=== PATIENT | male | born 1930 | race Caucasian/White ===

== ENCOUNTER 2017-12-23 23:26 | Inpatient (IN) | payer MEDICARE, OTHER ==
[~2017-12-23] VITALS: Ht 193 cm; Wt 122.0 kg
[~2017-12-23 23:26] MED LIST: BIMA2.5D4 EACHEYE; CEPH-572 PO; DIO80T PO; FLO0.4C PO; FURO40TA4 PO; MAGN400T29 PO; NEBI20TA2 PO; POTA10TA19 PO; RIVA20TA PO; TIMO10DR12 OP
[2017-12-23] MEDS ORDERED: normal saline 1000ml 1,000 ML IV ONE (23:50)
[2017-12-23 23:58] LABS: BASOPHILS # (AUTO) 0.1 X10'3 (0-0.2); BASOPHILS % (AUTO) 0.5 % (0-1); EOSINOPHILS # (AUTO) 0.2 X10'3 (0-0.9); EOSINOPHILS % (AUTO) 1.8 % (0-6); HEMATOCRIT 43.3 % (42.0-52.0); HEMOGLOBIN 14.3 g/dl (14.0-17.9); LYMPHOCYTES # (AUTO) 0.7 X10'3 (1.1-4.8); LYMPHOCYTES % (AUTO) 5.5 % (21-51); MEAN CORPUSCULAR HEMOGLOBIN 29.8 PG (27.0-31.0); MEAN CORPUSCULAR HGB CONC 33.1 % (33.0-36.5); MEAN CORPUSCULAR VOLUME 90.1 FL (78-98); MEAN PLATELET VOLUME 9.2 FL (7.4-10.4); MONOCYTES # (AUTO) 0.9 X10'3 (0-0.9); MONOCYTES % (AUTO) 6.8 % (2-12); NEUTROPHILS # (AUTO) 10.9 X10'3 (1.8-7.7); NEUTROPHILS % (AUTO) 85.4 % (42-75); PLATELET COUNT 379 X10'3 (140-440); RED BLOOD COUNT 4.81 X10'6 (4.70-6.10); RED CELL DISTRIBUTION WIDTH 15.3 % (11.5-14.5); WHITE BLOOD COUNT 12.8 X10'3 (4.5-11.0)
[2017-12-24 00:06] LABS: INR 1.4 INR; PARTIAL THROMBOPLASTIN TIME 39 SECONDS (22-32); PROTHROMBIN TIME 14.5 SECONDS (9.0-12.0)
[2017-12-24 00:10] LABS: ALANINE AMINOTRANSFERASE 87 U/L (12-78); ALBUMIN 2.6 G/DL (3.4-5.0); ALBUMIN/GLOBULIN RATIO 0.5 (1.1-1.5); ALKALINE PHOSPHATASE 117 IU/L (46-116); ANION GAP 8 (8-16); ASPARTATE AMINO TRANSFERASE 54 U/L (10-37); BILIRUBIN,TOTAL 0.7 MG/DL (0.1-1.0); BLOOD UREA NITROGEN 30 MG/DL (7-18); BUN/CREATININE RATIO 18.9 (5.4-32.0); CALCIUM 10.1 MG/DL (8.5-10.1); CHLORIDE 100 MMOL/L (99-107); CREATINE KINASE 36 U/L (39-308); CREATININE 1.59 MG/DL (0.60-1.10); GLUCOSE 119 MG/DL (70-104); MAGNESIUM 2.3 MG/DL (1.5-2.4); POTASSIUM 3.7 MMOL/L (3.5-5.1); SODIUM 135 MMOL/L (135-145); TOTAL PROTEIN 7.4 G/DL (6.4-8.2); eGFR 41 ML/MIN
[2017-12-24 01:19] LABS: CLARITY,URINE CLEAR (Clear); COLOR,URINE YELLOW (Yellow); GLUCOSE, URINE NEGATIVE (Neg); KETONES,URINE NEGATIVE (Neg); LEUKOCYTE ESTERASE ,URINE NEGATIVE (Neg); NITRITES, URINE NEGATIVE (Neg); OCCULT BLOOD,URINE NEGATIVE (Neg); PROTEIN,URINE NEGATIVE (Neg)
[2017-12-24 01:20] LABS: UA COLLECTION TYPE STRAIGHT CATH
[2017-12-24] MEDS ORDERED: thiamine 100mg/ml 2ml inj. IV ONE (02:25)
[2017-12-24] MEDS ORDERED: magnesium hydroxide 30ml (MOM) UD suspension PO PRN (02:40)
[2017-12-24] MEDS ORDERED: mag hydrox/Alum hydrox/simeth 30ml oral suspension PO PRN (02:40)
[2017-12-24] MEDS ORDERED: ondansetron/PF 4mg/2ml inj IV PRN (02:40)
[2017-12-24] MEDS: acetaminophen 325mg tablet PO PRN (04:32)
[2017-12-24 05:28] VITALS: BP 137/80
[2017-12-24 07:00] VITALS: BP 120/55
[2017-12-24] MEDS: tamsulosin 0.4mg capsule PO SCH (07:28)
[2017-12-24] MEDS: furosemide 40mg tablet PO SCH (07:29)
[2017-12-24] MEDS: rivaroxaban 20mg tablet PO SCH (07:29)
[2017-12-24] MEDS: metoprolol tartrate 50mg tablet PO SCH ×2 (07:29→20:23)
[2017-12-24] MEDS: magnesium oxide 400mg tablet PO SCH (07:29)
[2017-12-24] MEDS: potassium chloride 10mEq ER tablet PO SCH (07:33)
[2017-12-24] MEDS: cephalexin 500mg capsule PO SCH ×3 (10:16→20:23)
[2017-12-24] MEDS: timolol maleate 0.25% ophthalmic drops 10ml EACHEYE SCH (11:26)
[2017-12-24 11:42] VITALS: BP 137/74
[2017-12-24] MEDS: normal saline 1000ml 1,000 ML IV SCH (15:10)
[2017-12-24 15:21] LABS: BASOPHILS % (AUTO) 0.5 % (0-1); EOSINOPHILS # (AUTO) 0.3 X10'3 (0-0.9); EOSINOPHILS % (AUTO) 2.8 % (0-6); HEMATOCRIT 36.8 % (42.0-52.0); HEMOGLOBIN 12.3 g/dl (14.0-17.9); LYMPHOCYTES % (AUTO) 10.7 % (21-51); MEAN CORPUSCULAR HEMOGLOBIN 30.1 PG (27.0-31.0); MEAN CORPUSCULAR HGB CONC 33.5 % (33.0-36.5); MEAN CORPUSCULAR VOLUME 89.9 FL (78-98); MEAN PLATELET VOLUME 8.6 FL (7.4-10.4); MONOCYTES # (AUTO) 0.8 X10'3 (0-0.9); MONOCYTES % (AUTO) 8.2 % (2-12); NEUTROPHILS # (AUTO) 7.4 X10'3 (1.8-7.7); NEUTROPHILS % (AUTO) 77.8 % (42-75); PLATELET COUNT 351 X10'3 (140-440); RED BLOOD COUNT 4.09 X10'6 (4.70-6.10); RED CELL DISTRIBUTION WIDTH 15.3 % (11.5-14.5); WHITE BLOOD COUNT 9.5 X10'3 (4.5-11.0)
[2017-12-24 15:36] LABS: ALANINE AMINOTRANSFERASE 53 U/L (12-78); ALBUMIN/GLOBULIN RATIO 0.5 (1.1-1.5); ALKALINE PHOSPHATASE 95 IU/L (46-116); ANION GAP 6 (8-16); ASPARTATE AMINO TRANSFERASE 33 U/L (10-37); BILIRUBIN,TOTAL 0.6 MG/DL (0.1-1.0); BLOOD UREA NITROGEN 27 MG/DL (7-18); CALCIUM 9.5 MG/DL (8.5-10.1); CHLORIDE 102 MMOL/L (99-107); CREATINE KINASE 42 U/L (39-308); CREATININE 1.42 MG/DL (0.60-1.10); GLUCOSE 111 MG/DL (70-104); POTASSIUM 3.2 MMOL/L (3.5-5.1); SODIUM 137 MMOL/L (135-145); TOTAL CARBON DIOXIDE 29.2 MMOL/L (24-32); TOTAL PROTEIN 6.1 G/DL (6.4-8.2); eGFR 47 ML/MIN
[2017-12-24 20:00] VITALS: BP 138/71
[2017-12-24] MEDS ORDERED: potassium Cl 40MEQ/NS 500ml 500 ML IV PRN ×2 (20:00)
[2017-12-24] MEDS ORDERED: potassium Cl 20 mEq SR tablet PO PRN (20:00)
[2017-12-24] MEDS: potassium Cl 20 mEq SR tablet PO PRN (20:25)
[2017-12-24] MEDS: latanoprost 0.005% 2.5ml ophthalmic drops EACHEYE SCH (21:22)
[2017-12-25] VITALS: BP 160/66
[2017-12-25] MEDS: cephalexin 500mg capsule PO SCH ×4 (01:10→21:09)
[2017-12-25] MEDS: potassium Cl 20 mEq SR tablet PO PRN ×3 (01:10→21:09)
[2017-12-25] MEDS: normal saline 1000ml 1,000 ML IV SCH ×3 (01:10→20:55)
[2017-12-25 08:00] VITALS: BP 141/79
[2017-12-25] MEDS: metoprolol tartrate 50mg tablet PO SCH ×2 (08:05→21:09)
[2017-12-25] MEDS: potassium chloride 10mEq ER tablet PO SCH (08:05)
[2017-12-25] MEDS: magnesium oxide 400mg tablet PO SCH (08:05)
[2017-12-25] MEDS: tamsulosin 0.4mg capsule PO SCH (08:05)
[2017-12-25] MEDS: furosemide 40mg tablet PO SCH (08:05)
[2017-12-25] MEDS: rivaroxaban 20mg tablet PO SCH (08:05)
[2017-12-25] MEDS: timolol maleate 0.25% ophthalmic drops 10ml EACHEYE SCH (08:17)
[2017-12-25 11:00] VITALS: BP 152/78
[2017-12-25 18:00] VITALS: BP 166/75
[2017-12-25] MEDS: latanoprost 0.005% 2.5ml ophthalmic drops EACHEYE SCH (21:09)
[2017-12-26] VITALS: BP 143/71
[2017-12-26] MEDS: cephalexin 500mg capsule PO SCH ×4 (01:17→20:41)
[2017-12-26] MEDS: potassium Cl 20 mEq SR tablet PO PRN (01:18)
[2017-12-26 05:55] LABS: BASOPHILS % (AUTO) 0.4 % (0-1); EOSINOPHILS # (AUTO) 0.3 X10'3 (0-0.9); EOSINOPHILS % (AUTO) 3.4 % (0-6); HEMATOCRIT 39.8 % (42.0-52.0); HEMOGLOBIN 13.4 g/dl (14.0-17.9); LYMPHOCYTES # (AUTO) 0.8 X10'3 (1.1-4.8); MEAN CORPUSCULAR HEMOGLOBIN 29.9 PG (27.0-31.0); MEAN CORPUSCULAR HGB CONC 33.7 % (33.0-36.5); MEAN CORPUSCULAR VOLUME 88.9 FL (78-98); MEAN PLATELET VOLUME 8.8 FL (7.4-10.4); MONOCYTES # (AUTO) 0.7 X10'3 (0-0.9); MONOCYTES % (AUTO) 8.6 % (2-12); NEUTROPHILS # (AUTO) 6.9 X10'3 (1.8-7.7); NEUTROPHILS % (AUTO) 78.6 % (42-75); PLATELET COUNT 391 X10'3 (140-440); RED BLOOD COUNT 4.48 X10'6 (4.70-6.10); RED CELL DISTRIBUTION WIDTH 14.8 % (11.5-14.5); WHITE BLOOD COUNT 8.7 X10'3 (4.5-11.0)
[2017-12-26 06:24] LABS: ALANINE AMINOTRANSFERASE 56 U/L (12-78); ALBUMIN 2.1 G/DL (3.4-5.0); ALBUMIN/GLOBULIN RATIO 0.5 (1.1-1.5); ALKALINE PHOSPHATASE 85 IU/L (46-116); ANION GAP 8 (8-16); ASPARTATE AMINO TRANSFERASE 34 U/L (10-37); BILIRUBIN,TOTAL 0.7 MG/DL (0.1-1.0); BLOOD UREA NITROGEN 23 MG/DL (7-18); BUN/CREATININE RATIO 18.4 (5.4-32.0); CALCIUM 9.5 MG/DL (8.5-10.1); CHLORIDE 103 MMOL/L (99-107); CREATININE 1.25 MG/DL (0.60-1.10); GLUCOSE 80 MG/DL (70-104); POTASSIUM 3.7 MMOL/L (3.5-5.1); SODIUM 136 MMOL/L (135-145); TOTAL CARBON DIOXIDE 25.2 MMOL/L (24-32); TOTAL PROTEIN 6.4 G/DL (6.4-8.2); eGFR 55 ML/MIN
[2017-12-26] MEDS: normal saline 1000ml 1,000 ML IV SCH (07:37)
[2017-12-26] MEDS: magnesium oxide 400mg tablet PO SCH (07:38)
[2017-12-26] MEDS: tamsulosin 0.4mg capsule PO SCH (07:38)
[2017-12-26] MEDS: potassium chloride 10mEq ER tablet PO SCH (07:38)
[2017-12-26] MEDS: timolol maleate 0.25% ophthalmic drops 10ml EACHEYE SCH (07:38)
[2017-12-26] MEDS: metoprolol tartrate 50mg tablet PO SCH ×2 (07:38→20:41)
[2017-12-26] MEDS: rivaroxaban 20mg tablet PO SCH (07:38)
[2017-12-26] MEDS: furosemide 40mg tablet PO SCH (07:38)
[2017-12-26 18:00] VITALS: BP 175/92
[2017-12-26] MEDS: lactobacillus rhamnosus 10,000 MMU CELLS/CAPSULE PO SCH (20:41)
[2017-12-26] MEDS: latanoprost 0.005% 2.5ml ophthalmic drops EACHEYE SCH (20:42)
[2017-12-27] VITALS: BP 136/64
[2017-12-27] MEDS: cephalexin 500mg capsule PO SCH ×2 (02:25→08:18)
[2017-12-27 05:13] LABS: BASOPHILS % (AUTO) 0.5 % (0-1); EOSINOPHILS # (AUTO) 0.3 X10'3 (0-0.9); HEMATOCRIT 38.4 % (42.0-52.0); HEMOGLOBIN 12.9 g/dl (14.0-17.9); LYMPHOCYTES # (AUTO) 0.8 X10'3 (1.1-4.8); LYMPHOCYTES % (AUTO) 9.2 % (21-51); MEAN CORPUSCULAR HEMOGLOBIN 29.8 PG (27.0-31.0); MEAN CORPUSCULAR HGB CONC 33.6 % (33.0-36.5); MEAN CORPUSCULAR VOLUME 88.7 FL (78-98); MEAN PLATELET VOLUME 8.5 FL (7.4-10.4); MONOCYTES # (AUTO) 0.7 X10'3 (0-0.9); MONOCYTES % (AUTO) 7.8 % (2-12); NEUTROPHILS # (AUTO) 7.2 X10'3 (1.8-7.7); NEUTROPHILS % (AUTO) 79.5 % (42-75); PLATELET COUNT 364 X10'3 (140-440); RED BLOOD COUNT 4.33 X10'6 (4.70-6.10); RED CELL DISTRIBUTION WIDTH 14.9 % (11.5-14.5)
[2017-12-27 05:36] LABS: ALANINE AMINOTRANSFERASE 45 U/L (12-78); ALBUMIN 2.1 G/DL (3.4-5.0); ALBUMIN/GLOBULIN RATIO 0.5 (1.1-1.5); ALKALINE PHOSPHATASE 89 IU/L (46-116); ANION GAP 9 (8-16); ASPARTATE AMINO TRANSFERASE 33 U/L (10-37); BILIRUBIN,TOTAL 0.7 MG/DL (0.1-1.0); BLOOD UREA NITROGEN 24 MG/DL (7-18); BUN/CREATININE RATIO 18.9 (5.4-32.0); CALCIUM 9.9 MG/DL (8.5-10.1); CHLORIDE 102 MMOL/L (99-107); CREATININE 1.27 MG/DL (0.60-1.10); GLUCOSE 87 MG/DL (70-104); POTASSIUM 3.6 MMOL/L (3.5-5.1); SODIUM 134 MMOL/L (135-145); TOTAL CARBON DIOXIDE 23.1 MMOL/L (24-32); TOTAL PROTEIN 6.4 G/DL (6.4-8.2); eGFR 54 ML/MIN
[2017-12-27 07:00] VITALS: BP 156/84
[2017-12-27] MEDS: magnesium oxide 400mg tablet PO SCH (08:18)
[2017-12-27] MEDS: furosemide 40mg tablet PO SCH (08:18)
[2017-12-27] MEDS: timolol maleate 0.25% ophthalmic drops 10ml EACHEYE SCH (08:18)
[2017-12-27] MEDS: rivaroxaban 20mg tablet PO SCH (08:19)
[2017-12-27] MEDS: lactobacillus rhamnosus 10,000 MMU CELLS/CAPSULE PO SCH ×2 (08:19→19:49)
[2017-12-27] MEDS: metoprolol tartrate 50mg tablet PO SCH ×2 (08:19→19:49)
[2017-12-27] MEDS: potassium chloride 10mEq ER tablet PO SCH (08:19)
[2017-12-27] MEDS: tamsulosin 0.4mg capsule PO SCH (08:19)
[2017-12-27 11:33] VITALS: BP 143/89
[2017-12-27 19:00] VITALS: BP 158/92
[2017-12-27] MEDS: acetaminophen 325mg tablet PO PRN (19:49)
[2017-12-27] MEDS: latanoprost 0.005% 2.5ml ophthalmic drops EACHEYE SCH (19:49)
[2017-12-28] VITALS: BP 139/66
[2017-12-28 04:45] LABS: BASOPHILS % (AUTO) 0.5 % (0-1); EOSINOPHILS # (AUTO) 0.6 X10'3 (0-0.9); EOSINOPHILS % (AUTO) 6.9 % (0-6); HEMOGLOBIN 12.8 g/dl (14.0-17.9); LYMPHOCYTES # (AUTO) 0.8 X10'3 (1.1-4.8); LYMPHOCYTES % (AUTO) 9.2 % (21-51); MEAN CORPUSCULAR HEMOGLOBIN 30.1 PG (27.0-31.0); MEAN CORPUSCULAR HGB CONC 33.6 % (33.0-36.5); MEAN CORPUSCULAR VOLUME 89.6 FL (78-98); MEAN PLATELET VOLUME 8.8 FL (7.4-10.4); MONOCYTES # (AUTO) 0.7 X10'3 (0-0.9); MONOCYTES % (AUTO) 8.1 % (2-12); NEUTROPHILS # (AUTO) 6.8 X10'3 (1.8-7.7); NEUTROPHILS % (AUTO) 75.3 % (42-75); PLATELET COUNT 336 X10'3 (140-440); RED BLOOD COUNT 4.24 X10'6 (4.70-6.10); RED CELL DISTRIBUTION WIDTH 15.2 % (11.5-14.5)
[2017-12-28 05:02] LABS: ALANINE AMINOTRANSFERASE 53 U/L (12-78); ALBUMIN/GLOBULIN RATIO 0.5 (1.1-1.5); ALKALINE PHOSPHATASE 80 IU/L (46-116); ANION GAP 6 (8-16); ASPARTATE AMINO TRANSFERASE 36 U/L (10-37); BILIRUBIN,TOTAL 0.5 MG/DL (0.1-1.0); BLOOD UREA NITROGEN 25 MG/DL (7-18); BUN/CREATININE RATIO 18.7 (5.4-32.0); CALCIUM 9.8 MG/DL (8.5-10.1); CHLORIDE 105 MMOL/L (99-107); CREATININE 1.34 MG/DL (0.60-1.10); GLUCOSE 92 MG/DL (70-104); POTASSIUM 3.5 MMOL/L (3.5-5.1); SODIUM 137 MMOL/L (135-145); TOTAL CARBON DIOXIDE 25.6 MMOL/L (24-32); eGFR 50 ML/MIN
[2017-12-28 07:40] VITALS: BP 152/79
[2017-12-28] MEDS: metoprolol tartrate 50mg tablet PO SCH ×2 (08:27→20:15)
[2017-12-28] MEDS: magnesium oxide 400mg tablet PO SCH (08:27)
[2017-12-28] MEDS: timolol maleate 0.25% ophthalmic drops 10ml EACHEYE SCH (08:27)
[2017-12-28] MEDS: rivaroxaban 20mg tablet PO SCH (08:27)
[2017-12-28] MEDS: lactobacillus rhamnosus 10,000 MMU CELLS/CAPSULE PO SCH ×2 (08:27→20:15)
[2017-12-28] MEDS: tamsulosin 0.4mg capsule PO SCH (08:27)
[2017-12-28] MEDS: potassium chloride 10mEq ER tablet PO SCH (08:27)
[2017-12-28] MEDS: furosemide 40mg tablet PO SCH (08:27)
[2017-12-28 10:50] VITALS: BP 151/65
[2017-12-28] MEDS ORDERED: valsartan 80mg tablet PO SCH (13:45)
[2017-12-28 19:30] VITALS: BP 105/78
[2017-12-28 20:00] VITALS: BP 147/78
[2017-12-28] MEDS: latanoprost 0.005% 2.5ml ophthalmic drops EACHEYE SCH (20:15)
[2017-12-28] MEDS: acetaminophen 325mg tablet PO PRN (20:16)
[2017-12-29] VITALS: BP 130/67
[2017-12-29 05:51] LABS: ALANINE AMINOTRANSFERASE 47 U/L (12-78); ALBUMIN/GLOBULIN RATIO 0.5 (1.1-1.5); ALKALINE PHOSPHATASE 74 IU/L (46-116); ANION GAP 6 (8-16); ASPARTATE AMINO TRANSFERASE 30 U/L (10-37); BILIRUBIN,TOTAL 0.4 MG/DL (0.1-1.0); BLOOD UREA NITROGEN 27 MG/DL (7-18); BUN/CREATININE RATIO 18.9 (5.4-32.0); CALCIUM 9.5 MG/DL (8.5-10.1); CHLORIDE 104 MMOL/L (99-107); CREATININE 1.43 MG/DL (0.60-1.10); GLUCOSE 87 MG/DL (70-104); POTASSIUM 3.4 MMOL/L (3.5-5.1); SODIUM 137 MMOL/L (135-145); TOTAL CARBON DIOXIDE 26.6 MMOL/L (24-32); TOTAL PROTEIN 6.1 G/DL (6.4-8.2); eGFR 47 ML/MIN
[2017-12-29 05:54] LABS: BASOPHILS # (AUTO) 0.1 X10'3 (0-0.2); BASOPHILS % (AUTO) 0.6 % (0-1); EOSINOPHILS # (AUTO) 0.3 X10'3 (0-0.9); EOSINOPHILS % (AUTO) 2.9 % (0-6); HEMATOCRIT 36.2 % (42.0-52.0); HEMOGLOBIN 12.1 g/dl (14.0-17.9); LYMPHOCYTES # (AUTO) 1.3 X10'3 (1.1-4.8); LYMPHOCYTES % (AUTO) 13.5 % (21-51); MEAN CORPUSCULAR HEMOGLOBIN 30.2 PG (27.0-31.0); MEAN CORPUSCULAR HGB CONC 33.5 % (33.0-36.5); MEAN CORPUSCULAR VOLUME 90.3 FL (78-98); MONOCYTES # (AUTO) 0.8 X10'3 (0-0.9); NEUTROPHILS # (AUTO) 6.9 X10'3 (1.8-7.7); PLATELET COUNT 356 X10'3 (140-440); RED BLOOD COUNT 4.01 X10'6 (4.70-6.10); RED CELL DISTRIBUTION WIDTH 15.2 % (11.5-14.5); WHITE BLOOD COUNT 9.3 X10'3 (4.5-11.0)
[2017-12-29 07:30] VITALS: BP 146/78
[2017-12-29] MEDS: lactobacillus rhamnosus 10,000 MMU CELLS/CAPSULE PO SCH ×2 (07:41→20:32)
[2017-12-29] MEDS: magnesium oxide 400mg tablet PO SCH (07:41)
[2017-12-29] MEDS: furosemide 40mg tablet PO SCH (07:41)
[2017-12-29] MEDS: metoprolol tartrate 50mg tablet PO SCH ×2 (07:41→20:32)
[2017-12-29] MEDS: timolol maleate 0.25% ophthalmic drops 10ml EACHEYE SCH (07:41)
[2017-12-29] MEDS: rivaroxaban 20mg tablet PO SCH (07:41)
[2017-12-29] MEDS: potassium chloride 10mEq ER tablet PO SCH (07:41)
[2017-12-29] MEDS: tamsulosin 0.4mg capsule PO SCH (07:42)
[2017-12-29] MEDS: losartan 50mg tablet PO SCH (07:42)
[2017-12-29 11:00] VITALS: BP 134/75
[2017-12-29] MEDS ORDERED: potassium Cl 20 mEq SR tablet PO PRN (12:00)
[2017-12-29] MEDS ORDERED: potassium Cl 40MEQ/NS 500ml 500 ML IV PRN ×2 (12:00)
[2017-12-29] MEDS: potassium Cl 20 mEq SR tablet PO PRN ×2 (15:57→20:52)
[2017-12-29 20:00] VITALS: BP 123/73
[2017-12-29] MEDS: emollient combination-Eucerin 250 ML LOTION TP SCH (20:33)
[2017-12-29] MEDS: latanoprost 0.005% 2.5ml ophthalmic drops EACHEYE SCH (20:33)
[2017-12-30] VITALS: BP 138/71
[2017-12-30] MEDS: potassium Cl 20 mEq SR tablet PO PRN (00:46)
[2017-12-30 05:09] LABS: BASOPHILS # (AUTO) 0.1 X10'3 (0-0.2); BASOPHILS % (AUTO) 0.8 % (0-1); EOSINOPHILS # (AUTO) 0.3 X10'3 (0-0.9); EOSINOPHILS % (AUTO) 3.3 % (0-6); HEMATOCRIT 38.5 % (42.0-52.0); HEMOGLOBIN 12.9 g/dl (14.0-17.9); LYMPHOCYTES % (AUTO) 11.6 % (21-51); MEAN CORPUSCULAR HEMOGLOBIN 30.3 PG (27.0-31.0); MEAN CORPUSCULAR HGB CONC 33.6 % (33.0-36.5); MEAN CORPUSCULAR VOLUME 90.1 FL (78-98); MONOCYTES # (AUTO) 0.7 X10'3 (0-0.9); MONOCYTES % (AUTO) 8.3 % (2-12); NEUTROPHILS # (AUTO) 6.7 X10'3 (1.8-7.7); PLATELET COUNT 357 X10'3 (140-440); RED BLOOD COUNT 4.27 X10'6 (4.70-6.10); WHITE BLOOD COUNT 8.8 X10'3 (4.5-11.0)
[2017-12-30 05:12] LABS: ALANINE AMINOTRANSFERASE 44 U/L (12-78); ALBUMIN 2.1 G/DL (3.4-5.0); ALBUMIN/GLOBULIN RATIO 0.5 (1.1-1.5); ALKALINE PHOSPHATASE 71 IU/L (46-116); ANION GAP 8 (8-16); ASPARTATE AMINO TRANSFERASE 36 U/L (10-37); BILIRUBIN,TOTAL 0.5 MG/DL (0.1-1.0); BLOOD UREA NITROGEN 27 MG/DL (7-18); BUN/CREATININE RATIO 20.8 (5.4-32.0); CALCIUM 9.9 MG/DL (8.5-10.1); CHLORIDE 105 MMOL/L (99-107); GLUCOSE 87 MG/DL (70-104); POTASSIUM 3.8 MMOL/L (3.5-5.1); SODIUM 139 MMOL/L (135-145); TOTAL CARBON DIOXIDE 25.9 MMOL/L (24-32); TOTAL PROTEIN 6.2 G/DL (6.4-8.2); eGFR 52 ML/MIN
[2017-12-30 07:40] VITALS: BP 150/86
[2017-12-30] MEDS: tamsulosin 0.4mg capsule PO SCH (08:08)
[2017-12-30] MEDS: potassium chloride 10mEq ER tablet PO SCH (08:08)
[2017-12-30] MEDS: metoprolol tartrate 50mg tablet PO SCH (08:08)
[2017-12-30] MEDS: furosemide 40mg tablet PO SCH (08:08)
[2017-12-30] MEDS: magnesium oxide 400mg tablet PO SCH (08:08)
[2017-12-30] MEDS: losartan 50mg tablet PO SCH (08:08)
[2017-12-30] MEDS: timolol maleate 0.25% ophthalmic drops 10ml EACHEYE SCH (08:08)
[2017-12-30] MEDS: rivaroxaban 20mg tablet PO SCH (08:08)
[2017-12-30] MEDS: lactobacillus rhamnosus 10,000 MMU CELLS/CAPSULE PO SCH (08:08)
[2017-12-30] MEDS: emollient combination-Eucerin 250 ML LOTION TP SCH (08:09)
[2017-12-30 10:40] VITALS: BP 159/93
== END 2017-12-30 17:00 | DRG 73 ==
LOC: ER 23:27 → ED HOLD 12-24 02:38 → EDBEDREQ 12-24 04:00 → SUR 3N 12-24 05:25
PROVIDERS: ADMIT Internal Medicine; ATTEND Internal Medicine
DX: G90.8 Other disorders of autonomic nervous system (principal); N17.0 Acute kidney failure with tubular necrosis; E87.6 Hypokalemia; E86.0 Dehydration; W18.39XA Other fall on same level, initial encounter; E66.9 Obesity, unspecified; F03.90 Unspecified dementia, unspecified severity, without behavioral disturbance, psychotic disturbance, mood disturbance, and anxiety; N18.3 Chronic kidney disease, stage 3 (moderate); F32.9 Major depressive disorder, single episode, unspecified; I25.10 Atherosclerotic heart disease of native coronary artery without angina pectoris; I48.91 Unspecified atrial fibrillation; I50.9 Heart failure, unspecified; Z95.1 Presence of aortocoronary bypass graft; Z86.73 Personal history of transient ischemic attack (TIA), and cerebral infarction without residual deficits; Y93.89 Activity, other specified; Y92.89 Other specified places as the place of occurrence of the external cause; Y99.8 Other external cause status; Z68.32 Body mass index [BMI] 32.0-32.9, adult
CPT/HCPCS: 36415; 70450; 71045; 80053; 81003; 82550; 83605; 83735; 84132; 84145; 85025; 85610; 85730; 87040; 92616; 93005; 93306; 96360; 97110; 97116; 97162; 97530; 99285; A4353; A6212; A6213; A6258; J3411; J7030

== ENCOUNTER 2018-03-16 10:36 | Emergency (ER) | payer MEDICARE, OTHER ==
[~2018-03-16] VITALS: Ht 188 cm; Wt 108.0 kg
[~2018-03-16 10:36] MED LIST changes: -CEPH-572 PO
[2018-03-16] MEDS ORDERED: normal saline 1000ML IV soln IVB ONE (11:10)
[2018-03-16 11:51] LABS: BASOPHILS % (AUTO) 0.2 % (0-1); EOSINOPHILS # (AUTO) 0.2 X10'3 (0-0.9); EOSINOPHILS % (AUTO) 1.5 % (0-6); HEMATOCRIT 38.7 % (42.0-52.0); HEMOGLOBIN 12.5 g/dl (14.0-17.9); LYMPHOCYTES # (AUTO) 0.6 X10'3 (1.1-4.8); LYMPHOCYTES % (AUTO) 5.8 % (21-51); MEAN CORPUSCULAR HEMOGLOBIN 28.2 PG (27.0-31.0); MEAN CORPUSCULAR HGB CONC 32.3 % (33.0-36.5); MEAN CORPUSCULAR VOLUME 87.4 FL (78-98); MEAN PLATELET VOLUME 10.2 FL (7.4-10.4); MONOCYTES # (AUTO) 0.8 X10'3 (0-0.9); MONOCYTES % (AUTO) 7.3 % (2-12); NEUTROPHILS # (AUTO) 9.4 X10'3 (1.8-7.7); NEUTROPHILS % (AUTO) 85.2 % (42-75); PLATELET COUNT 276 X10'3 (140-440); RED BLOOD COUNT 4.43 X10'6 (4.70-6.10); WHITE BLOOD COUNT 11.1 X10'3 (4.5-11.0)
[2018-03-16 12:04] LABS: ALANINE AMINOTRANSFERASE 36 U/L (12-78); ALBUMIN 2.3 G/DL (3.4-5.0); ALBUMIN/GLOBULIN RATIO 0.5 (1.1-1.5); ALKALINE PHOSPHATASE 92 IU/L (46-116); ANION GAP 7 (8-16); ASPARTATE AMINO TRANSFERASE 41 U/L (10-37); BILIRUBIN,TOTAL 0.8 MG/DL (0.1-1.0); BLOOD UREA NITROGEN 25 MG/DL (7-18); BUN/CREATININE RATIO 14.6 (5.4-32.0); CALCIUM 10.3 MG/DL (8.5-10.1); CHLORIDE 100 MMOL/L (99-107); CREATININE 1.71 MG/DL (0.60-1.10); GLUCOSE 98 MG/DL (70-104); POTASSIUM 4.6 MMOL/L (3.5-5.1); SODIUM 135 MMOL/L (135-145); TOTAL CARBON DIOXIDE 27.8 MMOL/L (24-32); TOTAL PROTEIN 6.9 G/DL (6.4-8.2); eGFR 38 ML/MIN
[2018-03-16 12:52] LABS: CLARITY,URINE CLOUDY (Clear); COLOR,URINE YELLOW (Yellow); GLUCOSE, URINE NEGATIVE (Neg); KETONES,URINE NEGATIVE (Neg); LEUKOCYTE ESTERASE ,URINE LARGE (Neg); NITRITES, URINE NEGATIVE (Neg); OCCULT BLOOD,URINE MODERATE (Neg); PH,URINE 7.5 (4.8-8.0); PROTEIN,URINE 100 mg/dl (Neg); UROBILINOGEN,URINE 0.2 E.U/dL (0.2-1.0)
[2018-03-16 13:02] LABS: UA COLLECTION TYPE FOLEY CATH
[2018-03-16 13:03] LABS: RBC,URINE 0-2 /HPF (0-2); WBC,URINE TNTC /HPF (0-4)
[2018-03-16 13:04] LABS: BACTERIA,URINE 2+ /HPF (Neg); MUCUS STRANDS MODERATE /LPF (Neg); SQUAMOUS EPITHELIAL CELL,UR FEW /LPF (FEW)
[2018-03-16] MEDS ORDERED: CefTRIAXone 2gm/D5W 50ml 50 ML IV ONE (13:25)
[2018-03-16] MEDS ORDERED: LEVO500T89 PO (13:58)
[2018-03-17 01:44] VITALS: BP 128/90
== END 2018-03-16 14:30 | disposition home or self-care (01) ==
LOC: ER 10:37
DX: E86.0 Dehydration (principal); F03.90 Unspecified dementia, unspecified severity, without behavioral disturbance, psychotic disturbance, mood disturbance, and anxiety; N39.0 Urinary tract infection, site not specified; R44.3 Hallucinations, unspecified; R41.0 Disorientation, unspecified; I48.91 Unspecified atrial fibrillation; I25.10 Atherosclerotic heart disease of native coronary artery without angina pectoris; Z86.73 Personal history of transient ischemic attack (TIA), and cerebral infarction without residual deficits; Z95.1 Presence of aortocoronary bypass graft; Z79.899 Other long term (current) drug therapy
CPT/HCPCS: 36415; 80053; 81001; 85025; 87088; 96361; 96365; 99284; J0696; J7030

== ENCOUNTER → 2018-04-01 | Emergency (ER) | payer MEDICARE, OTHER ==
[~2018-04-01] VITALS: Ht 185.4 cm; Wt 120.5 kg
[~2018-04-01] MED LIST changes: +CEPH250T PO; +LIDOcaine 2% 10ml TOPICAL JELLY (Urojet) MM ONE; +LIDOcaine Viscous 15ml cup MM ONE; +cephalexin 250mg capsule PO ONE
[2018-04-01 16:47] LABS: BASOPHILS % (AUTO) 0.1 % (0-1); EOSINOPHILS # (AUTO) 0.2 X10'3 (0-0.9); EOSINOPHILS % (AUTO) 2.6 % (0-6); HEMATOCRIT 34.2 % (42.0-52.0); HEMOGLOBIN 11.2 g/dl (14.0-17.9); LYMPHOCYTES # (AUTO) 0.9 X10'3 (1.1-4.8); MEAN CORPUSCULAR HEMOGLOBIN 28.5 PG (27.0-31.0); MEAN CORPUSCULAR HGB CONC 32.8 % (33.0-36.5); MEAN CORPUSCULAR VOLUME 86.7 FL (78-98); MEAN PLATELET VOLUME 9.2 FL (7.4-10.4); MONOCYTES % (AUTO) 10.7 % (2-12); NEUTROPHILS % (AUTO) 76.6 % (42-75); PLATELET COUNT 252 X10'3 (140-440); RED BLOOD COUNT 3.95 X10'6 (4.70-6.10); WHITE BLOOD COUNT 9.1 X10'3 (4.5-11.0)
[2018-04-01 17:01] LABS: ANION GAP 7 (8-16); BLOOD UREA NITROGEN 18 MG/DL (7-18); BUN/CREATININE RATIO 12.2 (5.4-32.0); CALCIUM 9.8 MG/DL (8.5-10.1); CHLORIDE 99 MMOL/L (99-107); CREATININE 1.47 MG/DL (0.60-1.10); GLUCOSE 115 MG/DL (70-104); POTASSIUM 4.6 MMOL/L (3.5-5.1); SODIUM 134 MMOL/L (135-145); TOTAL CARBON DIOXIDE 28.2 MMOL/L (24-32); eGFR 45 ML/MIN
[2018-04-01 17:02] LABS: ALANINE AMINOTRANSFERASE 11 U/L (12-78); ALBUMIN 2.4 G/DL (3.4-5.0); ALBUMIN/GLOBULIN RATIO 0.5 (1.1-1.5); ALKALINE PHOSPHATASE 89 IU/L (46-116); ASPARTATE AMINO TRANSFERASE 10 U/L (10-37); BILIRUBIN,TOTAL 0.9 MG/DL (0.1-1.0); TOTAL PROTEIN 6.8 G/DL (6.4-8.2)
[2018-04-01 18:45] LABS: CLARITY,URINE CLEAR (Clear); COLOR,URINE YELLOW (Yellow); GLUCOSE, URINE NEGATIVE (Neg); KETONES,URINE NEGATIVE (Neg); LEUKOCYTE ESTERASE ,URINE TRACE (Neg); NITRITES, URINE NEGATIVE (Neg); OCCULT BLOOD,URINE NEGATIVE (Neg); PROTEIN,URINE NEGATIVE (Neg); UROBILINOGEN,URINE 0.2 E.U/dL (0.2-1.0)
[2018-04-01 18:46] LABS: UA COLLECTION TYPE FOLEY CATH
[2018-04-01 18:56] LABS: BACTERIA,URINE FEW /HPF (Neg); RBC,URINE 0-2 /HPF (0-2); SQUAMOUS EPITHELIAL CELL,UR FEW /LPF (FEW); WBC,URINE 0-4 /HPF (0-4)
[2018-04-01 20:12] VITALS: BP 143/78
== END | disposition home or self-care (01) ==
LOC: ER 15:44
DX: R33.9 Retention of urine, unspecified (principal); R41.0 Disorientation, unspecified; I25.10 Atherosclerotic heart disease of native coronary artery without angina pectoris; I48.91 Unspecified atrial fibrillation; Z86.73 Personal history of transient ischemic attack (TIA), and cerebral infarction without residual deficits; Z98.61 Coronary angioplasty status; Z79.2 Long term (current) use of antibiotics; Z79.899 Other long term (current) drug therapy
CPT/HCPCS: 36415; 51702; 80053; 81001; 83605; 85025; 87088; 99284

== ENCOUNTER 2019-11-06 20:46 | Emergency (ER) | payer MEDICARE, BC ==
[~2019-11-06] VITALS: Ht 182.9 cm; Wt 104.3 kg
[~2019-11-06 20:46] MED LIST changes: -CEPH250T PO; -LIDOcaine 2% 10ml TOPICAL JELLY (Urojet) MM ONE; -LIDOcaine Viscous 15ml cup MM ONE; -cephalexin 250mg capsule PO ONE
--- NOTE | 2019-11-06 21:24 | NUR ---
AT CT WITH PATIENT; WILL UPDATE TRAUMA CHARTING AND VS WHEN BACK IN ROOM.
--- NOTE | 2019-11-06 21:58 | NUR ---
relieving RN for break, Dr Walden at bedside to dermabond lac to forehead, pt is resting quietly, remains on trauma status
[2019-11-06] MEDS ORDERED: AZIT250T29 PO (22:07)
--- NOTE | 2019-11-06 22:11 | NUR ---
UPDATED ED MD CASTILLO REGARDING PT'S HIGH BP; CONFIRMED OK FOR D/C WITH [facility] READINGS.
--- NOTE | 2019-11-06 22:14 | NUR ---
UPDATING PT'S POA AND DAUGHTER- BIJAN
--- NOTE | 2019-11-06 22:17 | NUR ---
HE[facility]EN[facility] CARGO HAS BEEN USED IN THE PAST AND HAS DAUGHTER'S INFO ON FILE BIJAN- [phone]
--- NOTE | 2019-11-06 22:21 | NUR ---
CALLING TO [facility] PT'S STATUS.
--- NOTE | 2019-11-06 22:22 | NUR ---
ATTEMPTED TO UPDATE [facility]-LEFT MESSAGE
--- NOTE | 2019-11-06 22:35 | NUR ---
ATTEMPTED TO CALL [facility] A SECOND TIME - WITH NO ANSWER. WILL TRY AGAIN
--- NOTE | 2019-11-06 22:38 | NUR ---
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 OK TO GIVE [facility] CARGO A CALL FOR [employer] OPERATOR & WILL GIVE TRANSPORT D/C INSTRUCTIONS IF [facility] NOT ABLE TO BE REACHED; WILL BE HERE IN 30-45 MIN.
[2019-11-06] MEDS ORDERED: acetaminophen 325mg tablet PO STA (23:03)
--- NOTE | 2019-11-06 23:04 | NUR ---
THIRD TIME ATTEMPTING TO CALL [facility] REGARDING PT. UNABLE TO REACH STAFF; LEFT MESSAGE
[2019-11-06 23:42] VITALS: BP 199/95
== END 2019-11-06 23:45 | disposition home or self-care (01) ==
LOC: ER 20:46
DX: S01.81XA Laceration without foreign body of other part of head, initial encounter (principal); S09.90XA Unspecified injury of head, initial encounter; S00.81XA Abrasion of other part of head, initial encounter; S16.1XXA Strain of muscle, fascia and tendon at neck level, initial encounter; S20.229A Contusion of unspecified back wall of thorax, initial encounter; I48.91 Unspecified atrial fibrillation; I25.10 Atherosclerotic heart disease of native coronary artery without angina pectoris; Z95.1 Presence of aortocoronary bypass graft; Z72.89 Other problems related to lifestyle; Z79.2 Long term (current) use of antibiotics; Z79.01 Long term (current) use of anticoagulants; Z79.899 Other long term (current) drug therapy; W19.XXXA Unspecified fall, initial encounter; Y93.89 Activity, other specified; Y92.89 Other specified places as the place of occurrence of the external cause; Y99.8 Other external cause status
CPT/HCPCS: 12011; 70450; 70486; 72125; 72128; 72131; 93005; 99285

== ENCOUNTER 2020-02-04 16:28 | Emergency (ER) | payer MEDICARE, BC ==
[~2020-02-04] VITALS: Ht 188 cm; Wt 110.0 kg
[~2020-02-04 16:28] MED LIST changes: +AMLO-94 PO; +ASPI81TA52 PO; +ATOR80TA PO; +BETA1TAB19 PO; -BIMA2.5D4 EACHEYE; +CITA10TA15 PO; -DIO80T PO; +DOCU-149 PO; +FINA5TAB11 PO; -FURO40TA4 PO; +LACT1CAP65 PO; +LATA2.5D2 EACHEYE; +LEVO500T89 PO; +LISI40TA4 PO; +METO50TA17 PO; -NEBI20TA2 PO; +OMEP-50 PO; +POLY119P2 PO; -POTA10TA19 PO; +POTA10TA36 PO; +RIVA15TA PO; +RIVA1PAT13 TOP; -RIVA20TA PO; -TIMO10DR12 OP; +hydralazine PO
[2020-02-04] MEDS ORDERED: normal saline 1000ML IV soln IVB ONE (17:10)
[2020-02-04 17:42] LABS: BASOPHILS # (AUTO) 0.1 X10'3 (0-0.2); BASOPHILS % (AUTO) 0.6 % (0-1); EOSINOPHILS # (AUTO) 0.2 X10'3 (0-0.9); EOSINOPHILS % (AUTO) 2.4 % (0-6); HEMATOCRIT 32.7 % (42.0-52.0); HEMOGLOBIN 10.8 g/dl (14.0-17.9); LYMPHOCYTES # (AUTO) 0.8 X10'3 (1.1-4.8); LYMPHOCYTES % (AUTO) 8.5 % (21-51); MEAN CORPUSCULAR HEMOGLOBIN 29.7 PG (27.0-31.0); MEAN CORPUSCULAR HGB CONC 32.9 g/dL (33.0-36.5); MEAN CORPUSCULAR VOLUME 90.4 FL (78-98); MEAN PLATELET VOLUME 9.9 FL (7.4-10.4); MONOCYTES # (AUTO) 0.5 X10'3 (0-0.9); MONOCYTES % (AUTO) 5.9 % (2-12); NEUTROPHILS # (AUTO) 7.6 X10'3 (1.8-7.7); NEUTROPHILS % (AUTO) 82.6 % (42-75); PLATELET COUNT 305 X10'3 (140-440); RED BLOOD COUNT 3.62 X10'6 (4.70-6.10); RED CELL DISTRIBUTION WIDTH 16.3 % (11.5-14.5); WHITE BLOOD COUNT 9.2 X10'3 (4.5-11.0)
[2020-02-04 17:47] LABS: CLARITY,URINE CLOUDY (Clear); GLUCOSE, URINE NEGATIVE (Neg); KETONES,URINE NEGATIVE (Neg); LEUKOCYTE ESTERASE ,URINE NEGATIVE (Neg); NITRITES, URINE NEGATIVE (Neg); OCCULT BLOOD,URINE LARGE (Neg); PH,URINE 6.5 (4.8-8.0); PROTEIN,URINE 30 mg/dl (Neg)
[2020-02-04 17:49] LABS: COLOR,URINE DARK YELLOW (Yellow); UA COLLECTION TYPE NON-SPECIFIED
[2020-02-04 17:53] LABS: BACTERIA,URINE FEW /HPF (Neg); RBC,URINE TNTC /HPF (0-2); SQUAMOUS EPITHELIAL CELL,UR FEW /LPF (FEW)
[2020-02-04 17:55] LABS: HYALINE CASTS 0-3 /LPF (NEGATIVE); WBC,URINE 0-4 /HPF (0-4)
[2020-02-04 17:58] LABS: ALANINE AMINOTRANSFERASE 40 U/L (12-78); ALBUMIN 2.5 G/DL (3.4-5.0); ALBUMIN/GLOBULIN RATIO 0.7 (1.1-1.5); ALKALINE PHOSPHATASE 88 IU/L (46-116); ANION GAP 4 (8-16); ASPARTATE AMINO TRANSFERASE 32 U/L (10-37); BILIRUBIN,TOTAL 1.3 MG/DL (0.1-1.0); BLOOD UREA NITROGEN 22 MG/DL (7-18); BUN/CREATININE RATIO 13.7 (5.4-32.0); CALCIUM 9.6 MG/DL (8.5-10.1); CHLORIDE 109 MMOL/L (99-107); CREATININE 1.61 MG/DL (0.60-1.10); GLUCOSE 90 MG/DL (70-104); POTASSIUM 4.1 MMOL/L (3.5-5.1); SODIUM 139 MMOL/L (135-145); TOTAL CARBON DIOXIDE 25.7 MMOL/L (24-32); TOTAL PROTEIN 6.2 G/DL (6.4-8.2); eGFR 41 ML/MIN
[2020-02-04 18:01] LABS: TROPONIN I < 0.04 NG/ML (0.0-0.05)
[2020-02-04 18:33] VITALS: BP 172/90
--- NOTE | 2020-02-04 18:56 | NUR ---
CALLED JULIAN TO GIVE REPORT TO RECEIVING NURSE. NURSE WILL CALL BACK WHEN OUT OF REPORT
--- NOTE | 2020-02-04 19:28 | NUR ---
REPORT GIVEN TO GAIL ARNOLD AT [facility]
--- NOTE | 2020-02-04 19:28 | NUR ---
PT'S DAUGHTER BIJAN CALLED AND IS ADDIMENT THAT SOMETHING IS WRONG WITH HER FATHER THAT WE ARE MISSING. SHE STATES HE IS NOT EATING, DRINKING OR TALKING. THIS IS NOT HIS NORMAL SHE WANTS HIM ADMITTED AND US TO FIND THE CAUSE. SHE STATED "HIS HOSPICE BEREAVEMENT COORDINATOR IS ON SPEED DIAL AND WE NEED TO FIGURE IT OUT." DR MERAZ INFORMED AND GALE ROSAS CHARGE NURSE INFORMED OF FAMILIES WISHES. STATES PT IS STABLE FOR TRANSFER BACK TO [facility]
== END 2020-02-04 20:21 ==
LOC: ER 16:28
DX: F03.90 Unspecified dementia, unspecified severity, without behavioral disturbance, psychotic disturbance, mood disturbance, and anxiety (principal); I48.91 Unspecified atrial fibrillation; I25.10 Atherosclerotic heart disease of native coronary artery without angina pectoris; Z86.73 Personal history of transient ischemic attack (TIA), and cerebral infarction without residual deficits; Z95.1 Presence of aortocoronary bypass graft; Z72.89 Other problems related to lifestyle
CPT/HCPCS: 36415; 71045; 80053; 81001; 82948; 84484; 85025; 93005; 99285; J7030